=== PATIENT | male | born 1970 | race Caucasian/White ===

== ENCOUNTER 2025-10-30 11:13 | Outpatient (REF) | payer BC, SELFPAY ==
[2025-10-30 14:45] LABS: MANUAL DIFF FLAG NO
[2025-10-30 14:56] LABS: Hematocrit 47.1 % (42.0-52.0); Hemoglobin 15.0 g/dl (14.0-18.0); Imm Gran Abs Auto 0.03 X10*3/uL (0.00-0.03); Imm Gran Pct Auto 0.4 % (0.0-0.4); Lymphocytes Absolute Auto 1.9 X10*3/uL (1.2-4.9); Mean Corpuscular HGB Conc 31.8 g/dl (31.0-36.0); Mean Corpuscular Hemoglobin 27.6 pg (27.0-33.0); Mean Corpuscular Volume 86.7 fL (80.0-98.0); NRBC Abs Auto 0.000 X10*3/uL (0.0-0.012); NRBC Pct Auto 0.0 /100WBC (0.0-0.2); Platelet Count 262 X10*3/uL (160-400); Red Blood Count 5.43 X10*6/uL (4.60-5.80); White Blood Count 6.7 X10*3/uL (4.8-10.8)
[2025-10-30 15:11] LABS: Alanine Aminotransferase 35 U/L (0-40); Albumin Level 4.5 g/dL (3.5-5.0); Alkaline Phosphatase 106 U/L (39-117); Anion Gap 11 (12-20); Aspartate Amino Transferase 31 U/L (5-37); Blood Urea Nitrogen 19 mg/dL (9-16); Calcium 9.0 mg/dL (8.4-10.2); Carbon Dioxide 28 mmol/L (22-29); Chloride 107 mmol/L (96-108); Cholesterol 171 mg/dL (<200); Estimated Glomerular Filt Rate > 60; HDL Cholesterol 41 mg/dL (>40); Potassium 3.9 mmol/L (3.3-5.1); Sodium 142 mmol/L (135-145); Total Protein 7.5 g/dL (6.5-8.0); Triglycerides 226 mg/dL (<150)
[2025-10-30 15:27] LABS: Prostate Specific Antigen 2.07 ng/mL (<0.05-4.0)
== END 2025-10-30 11:14 | disposition home or self-care (01) ==
LOC: HO.WFDLDS 11:13
PROVIDERS: PCP Internal Medicine; Visit Provider Internal Medicine
DX: Z13.0 Encounter for screening for diseases of the blood and blood-forming organs and certain disorders involving the immune mechanism (principal); Z13.220 Encounter for screening for lipoid disorders; Z12.5 Encounter for screening for malignant neoplasm of prostate; I10 Essential (primary) hypertension; E66.01 Morbid (severe) obesity due to excess calories; K63.5 Polyp of colon; Z68.42 Body mass index [BMI] 45.0-49.9, adult
CPT/HCPCS: 36415; 80053; 80061; 83036; 84153; 84443; 85025; 96127

== ENCOUNTER 2025-10-30 11:13 | Outpatient (AMB) | payer BC, SELFPAY ==
--- NOTE | 2025-10-30 11:24 | A.OFFPC_ITS ---
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 Transfer from [place] Has had borderline high BP in past. Elevated x 2 today. Has gained weight despite weight loss efforts Was diagnosed with BENNIE. Did not tolerate CPAP despite trying 3 different masks Colonoscopy: 2020, repeat due in ?2025. Luizaletha KELI CONSTITUTIONAL: Denies weight loss, fever and chills. HEENT: Denies changes in vision and hearing. RESPIRATORY: Denies SOB and cough. CV: Denies palpitations and CP GI: Denies abdominal pain, nausea, vomiting and diarrhea. : Denies dysuria and urinary frequency. MSK: Denies new myalgia and joint pain. SKIN: Denies rash and pruritus. NEUROLOGICAL: Denies headache PSYCHIATRIC: Denies recent changes in mood. PHYSICAL EXAM: GENERAL: Alert and oriented x 3. NAD EYES: EOMI. Anicteric. HENT: Moist mucous membranes. No scleral icterus. No cervical lymphadenopathy. LUNGS: Clear to auscultation bilaterally. CARDIOVASCULAR: Regular rate and rhythm. No murmur. No JVD. ABDOMEN: Soft, non-tender +bs EXTREMITIES: No edema. Non-tender. SKIN: No rashes or lesions. Warm. NEUROLOGIC: No focal neurological deficits. CN II-XII grossly intact PSYCHIATRIC: Cooperative. 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 1. Little interest or pleasure in doing things: not at all 2. Feeling down, depressed, or hopeless: not at all 3. Trouble falling or staying asleep, or sleeping too much: not at all 4. Feeling tired or having little energy: not at all 5. Poor appetite or overeating: not at all 6. Feeling bad about yourself - or that you are a failure or have let yourself or your family down: not at all 7. Trouble concentrating on things, such as reading the newspaper or watching television: not at all 8. Moving or speaking so slowly that other people could have noticed. Or the opposite - being so fidgety or restless that you have been moving around a lot more than usual: not at all 9. Thoughts that you would be better off or of hurting yourself in some way: not at all Total score: 0 Depression Screening Interpretation: Negative Depression Screening Done: Yes 52779 - PHQ-9 Billing: Yes Source: Developed by Drs. Tyree Cartwright, Nancy Lanza, Bonifacio Zapata and colleagues, with an educational krystal from [employer]. Thrive Questionnaire Date Thrive assessed: 10/30/25 I am a: Patient What is your living situation today?: I have a steady place to live Within the past 12 months, did the food you bought not last and you didn't have the money to get more?: Never true Within the past 12 months, did you worry whether your food would run out before you got money to buy more?: Never true Do you have trouble paying for medicines?: No Do you have trouble getting transportation to medical appointments?: No Do you have trouble paying your heating and electricity bill?: No Do you have trouble taking care of your child, family member or friend?: No Do you have trouble with day-to-day activities such as bathing, preparing meals, shopping, managing finances, etc.?: No Are you currently unemployed and looking for a job?: No Are you interested in more education?: No Please select the resources that you would like help with: None Currently or been in a relationship where the following occur: No concerns reported THRIVE Score: 0 AUDIT C Alcohol Use Questionnaire (AUDIT-C) 1. How often do you have a drink containing alcohol?: Never 3. How often do you have six or more drinks on one occasion?: Never Total Score: 0 JOE-7 AMB Questionnaire JOE-7 Date JOE - 7 assessed: 10/30/25 Feeling nervous, anxious, or on edge: 1 = Several days Not being able to stop or control worryin = Not at all Worrying too much about different things: 0 = Not at all Trouble relaxin = Several days Being so restless that it is hard to sit still: 1 = Several days Becoming easily annoyed or irritable: 1 = Several days Feeling afraid as if something awful might happen: 0 = Not at all Total JOE-7 score (0-4 normal; 5-9 mild; 10-14 moderate; 15-21 severe): 4 Source: Developed by Drs. Tyree Cartwright, Nancy Lanza, Bonifacio Zapata and colleagues, with an educational krystal from [employer]. JOE-7 Assessment Billing JOE-7 Assessment Tool: JOE-7 Assessment 42746 Physical exam (Primary Care) Vital Signs: Last Vital Signs Temp 98.1 F 10/30/25 11:27 Pulse 84 10/30/25 11:27 Resp 16 10/30/25 11:27 BP 144/98 H 10/30/25 11:37 Pulse Ox 94 10/30/25 11:27 Oxygen Delivery Method Room Air 10/30/25 11:27 BMI result Body Mass Index 45.1 Tobacco/Smoking Status: Tobacco use Status Tobacco use date assessed 10/30/25 10/30/25 11:36 Patient Tobacco Use Status Former Tobacco user (quit 15 10/30/25 11:36 years ago) e-Cigarette/Vaping Use Currently Using 10/30/25 11:36 PHQ-9: PHQ-9 Score PHQ-9: Total score 0 10/30/25 11:50 Depression Screening Interpretation: Negative Thrive Assessment: Date of Thrive Assessment Date Thrive assessed 10/30/25 10/30/25 11:36 Currently or been in a relationship where the following occur: No concerns reported Coding Level of Care Code Complex visit Add On G2211 Diagnoses Primary hypertension I10 Hypertension type: primary hypertension Obesity, morbid, BMI 40.0-49.9 E66.01 Polyp of colon, unspecified part of colon, unspecified type K63.5 Colon polyp type: unspecified Colon location: unspecified part of colon Additional Codes JOE-7 Assessment Billing - JOE-7 Assessment Tool: JOE-7 Assessment [id number] ([id number]) PHQ-9 - 45322 - PHQ-9 Billing: Yes ([id number]) Assessment & Plan Assessment & Plan (1) Hypertension: Code(s): I10 - Essential (primary) hypertension Category: Medical Qualifiers: Hypertension type: primary hypertension Qualified Code(s): I10 - Essential (primary) hypertension (2) Obesity, morbid, BMI 40.0-49.9: Code(s): E66.01 - Morbid (severe) obesity due to excess calories Category: Medical (3) Colon polyp: Code(s): K63.5 - Polyp of colon Category: Medical Qualifiers: Colon polyp type: unspecified Colon location: unspecified part of colon Qualified Code(s): K63.5 - Polyp of colon Plan 55 year old to establish care Past medical surgical social reviewed HTN. Would like him to lose weight. Zepbound is sent. If he fails to lose weight will need BP medications. Decrease salt. Increase physical activity. Labs ordered Referral for colonoscopy Orders: Orders Complete Blood Count Auto Diff Today E66.01 - Morbid (severe) obesity due to excess calories, I10 - Essential (primary) hypertension, Z13.0 - Encounter for screening for diseases of the blood and blood-forming organs and certain disorders involving the immune mechanism, Z13.220 - Encounter for screening for lipoid disorders Lipid Panel Today E66.01 - Morbid (severe) obesity due to excess calories, I10 - Essential (primary) hypertension, Z13.0 - Encounter for screening for diseases of the blood and blood-forming organs and certain disorders involving the immune mechanism, Z13.220 - Encounter for screening for lipoid disorders TSH reflex Free T4 Today E66.01 - Morbid (severe) obesity due to excess calories, I10 - Essential (primary) hypertension, Z13.0 - Encounter for screening for diseases of the blood and blood-forming organs and certain disorders involving the immune mechanism, Z13.220 - Encounter for screening for lipoid disorders Comprehensive Met. Panel Today E66.01 - Morbid (severe) obesity due to excess calories, I10 - Essential (primary) hypertension, Z13.0 - Encounter for screening for diseases of the blood and blood-forming organs and certain disorders involving the immune mechanism, Z13.220 - Encounter for screening for lipoid disorders Hemoglobin A1c Today E66.01 - Morbid (severe) obesity due to excess calories, I10 - Essential (primary) hypertension, Z13.0 - Encounter for screening for diseases of the blood and blood-forming organs and certain disorders involving the immune mechanism, Z13.220 - Encounter for screening for lipoid disorders Prostate Specific Antigen Today Z12.5 - Encounter for screening for malignant neoplasm of prostate Referrals Gastroenterology Referral K63.5 - Polyp of colon Medications: New Zepbound (tirzepatide (weight loss)) for 4 weeks 2.5 mg (0.5 mL) subcut QWEEK 2 mL 1RF NS E66.01 - Morbid (severe) obesity due to excess calories, G47.33 - Obstructive sleep apnea (adult) (pediatric), I10 - Essential (primary) hypertension ondansetron 4 mg PO Q8H PRN 30 tabs 1RF nausea and vomiting
[2025-10-30 11:27] VITALS: BP 142/94; PULSE 84; RESP 16; TEMP 36.7; O2SAT 94; BMI 45.1
[2025-10-30 11:37] VITALS: BP 144/98
== END 2025-10-30 12:07 | disposition home or self-care (01) ==
LOC: HO.HMCFM 11:14
PROVIDERS: PCP Internal Medicine; Visit Provider Internal Medicine
DX: I10 Essential (primary) hypertension (principal); E66.01 Morbid (severe) obesity due to excess calories; K63.5 Polyp of colon; Z68.42 Body mass index [BMI] 45.0-49.9, adult